=== PATIENT | male | born 1950 | race Caucasian/White ===

== ENCOUNTER 2019-06-24 07:16 | Day surgery (SDC) | payer MEDICARE ==
[~2019-06-24] VITALS: Ht 167.7 cm; Wt 67.7 kg
[~2019-06-24 07:16] MED LIST: AMOX500C2 PO; CLAR-19 PO; CLAR250T3 PO; INSU100C3 SQ; INSU100V SQ; INSU100V16 SQ; INSU100V5 SQ; LISI-552 PO; LISI10TA2 PO; OMEP10SU2 PO; OMEP20CA13 PO; ONDA4TAB11 SL; ONDA8TAB9 PO
[2019-06-24] MEDS ORDERED: LACTATED RINGERS 1,000 ML IV STA (07:25)
[2019-06-24] MEDS ORDERED: HURRICAINE EXT TUBE (BENZOCAINE) XX PRN (07:30)
[2019-06-24 07:46] VITALS: BP 156/56
[2019-06-24] MEDS ORDERED: LACTATED RINGERS 1,000 ML IV ONE (07:50)
[2019-06-24] MEDS ORDERED: NF-MINO10T PO (07:55)
[2019-06-24] MEDS ORDERED: CHOL20002 PO (08:02)
[2019-06-24] MEDS ORDERED: TAMS0.4C98 PO (08:02)
[2019-06-24] MEDS ORDERED: AMLO10TA7 PO (08:02)
[2019-06-24] MEDS ORDERED: FERR-84 PO (08:02)
[2019-06-24] MEDS ORDERED: FAMO20TA5 PO (08:02)
[2019-06-24] MEDS ORDERED: CLOP75TA28 PO (08:02)
[2019-06-24] MEDS ORDERED: FINA5TAB6 PO (08:02)
[2019-06-24] MEDS ORDERED: SERT25TA5 PO (08:02)
[2019-06-24] MEDS ORDERED: METO-352 PO (08:02)
[2019-06-24] MEDS ORDERED: ATOR80TA76 PO (08:02)
[2019-06-24] MEDS ORDERED: CLON0.1T PO (08:02)
[2019-06-24] MEDS ORDERED: PROPOFOL INJECTION 50 ML IV ONE (08:11)
[2019-06-24] MEDS ORDERED: MIDAZOLAM 2 MG/2 ML (VERSED) VIAL ONE (08:11)
--- NOTE | 2019-06-24 08:29 | Progress Note-Pre Operative ---
Pre-Operative Progress Note H&P Reviewed The H&P was reviewed, patient examined and no changes noted. Time Seen by Provider: 08:23 Date H&P Reviewed: Jun 24, 2019 Time H&P Reviewed: 08:24 Pre-Operative Diagnosis: N/V, Screening colonoscopy BK ALMONTE DO Jun 24, 2019 08:29
[2019-06-24] MEDS ORDERED: HURRICAINE EXT TUBE (BENZOCAINE) ONE (08:35)
[2019-06-24 09:15] VITALS: BP 101/49
[2019-06-24 09:19] VITALS: BP 105/47
[2019-06-24 09:20] VITALS: BP 105/51
--- NOTE | 2019-06-24 09:59 | Progress Note-Post Operative ---
Post-Operative Progess Note Surgeon (s)/Inspector Missile (s) Surgeon BK ALMONTE DO Inspector Missile: JASON Ferguson Pre-Operative Diagnosis N/V, Screening colonoscopy Post-Operative Diagnosis Gastritis, Hiatal Hernia Esophagitis, ??Gastroparesis Colon polyp Diverticula Internal hemorrhoids Poor prep Procedure & Operative Findings Date of Procedure 06/24/19 Procedure Performed/Findings EGD with bx Colon with snare Anesthesia Type IV sedation by CONSUMER LENDER Estimated Blood Loss Estimated blood loss (mL): scant Specimens/Packing Specimens Removed antral bx body of stomach bx GE jxn bx Transverse colon polyp BK ALMONTE DO Jun 24, 2019 09:59
[2019-06-24 10:00] VITALS: BP 158/67
--- NOTE | 2019-06-24 10:01 | Endoscopy Discharge Instruct ---
Endo Procedure/Findings Findings 1.: Hiatal Hernia, Gastritis 2.: Polyp 3.: Diverticulosis 4.: Internal Hemorrhoids Discharge Instructions - Activity: You might feel a little sleepy until tomorrow. This is due to the medicine you received to relax you. Until tomorrow, you should: NOT drive a car, operate machinery or power tools. NOT drink any alcoholic beverages. NOT make any important decisions or sign importortant papers. Do not return to work until tomorrow, unless otherwise instructed. Resume previous activities tomorrow. Diet: Start by taking liquids. If you tolerate liquids, advance to solid food. make an appointment for one week 1.: Colonoscopy in 1 year, EGD in 1 year Notify Physician - If you experience excessive bleeding, unusual abdominal pain, fever, or chest pain, contact your doctor immediately. BK ALMONTE DO Jun 24, 2019 10:01
[2019-06-24 10:15] VITALS: BP 158/67
--- NOTE | 2019-06-24 10:36 | Anesthesia-General Post-Op ---
MAC Patient Condition Mental Status/LOC: Same as Preop Cardiovascular: Satisfactory Nausea/Vomiting: Absent Respiratory: Satisfactory Pain: Controlled Complications: Absent Post Op Complications Complications None Follow Up Care/Instructions Patient Instructions None needed. Anesthesiology Discharge Order Discharge Order Patient is doing well, no complaints, stable vital signs, no apparent adverse anesthesia problems. TARA BAILEY DO Jun 24, 2019 10:36
--- NOTE | 2019-06-25 01:59 | OPERATIVE REPORT ---
DATE OF SERVICE: PREOPERATIVE DIAGNOSES: 1. Gastritis. 2. Screening colonoscopy. POSTOPERATIVE DIAGNOSES: 1. Gastritis. 2. Hiatal hernia. 3. Esophagitis. 4. Transverse colon polyp. 5. Diverticula. 6. Internal hemorrhoids. 7. Poor prep. 8. Possible gastroparesis. PROCEDURES: 1. EGD with biopsy. 2. Colonoscopy with snare polypectomy. SURGEON: Hermelindo Cruz DO. CLOCKMAKER APPRENTICE: Jayde De Paz MS3. SPECIMEN: Biopsy from the antrum, body of stomach and GE junction as well as a polyp from the transverse colon. BLOOD LOSS: Scant. FLUIDS: Per anesthesia. POSTOPERATIVE CONDITION: Stable. INDICATION FOR PROCEDURE: The patient is a 68-year-old male who has some chronic gastritis and needed a workup. He also has not ever had a colonoscopy, needed one for screening. FINDINGS: The patient had a lot of retained liquid in the stomach and some vegetable matter may be due to gastroparesis. He also had some gastritis in the colon, saw a polyp in the transverse colon and removed this. He also had a lot of retained fecal material. He also had some internal hemorrhoids and some diverticula. Pictures of all these were taken. He will need a repeat colonoscopy in one year because of the poor prep. PROCEDURE NOTE: After informed consent was obtained, the patient was brought to the endoscopy suite and placed in bed in the left lateral decubitus position. He was administered IV sedation by the [employer] MAKE UP HELPER who monitored his vitals the entire time, heart rate, blood pressure and pulse ox and the scope was inserted down the mouth through the esophagus into the stomach. Upon entering the stomach, noted a lot of liquid and vegetable matter, took a picture of this may be due to some gastroparesis from his renal disease and diabetes. Pushed in towards the antrum and then into the duodenum. Duodenum looked fine, took a picture of this. Pulled the scope back, he had some mild gastritis, elected to do a biopsy of the antrum and then did a biopsy of the body of stomach. When I retroflexed the scope, saw a small hiatal hernia, took a picture of this and then pulled the scope into the GE junction again could see small hiatal hernia, did a biopsy of the GE junction, suctioned the air out of the stomach and then pulled the scope up the esophagus and out the mouth. Switched camera, switched gloves, went down below, started the colonoscopy. Pushed the scope in and on the way in, noted a lot of diverticula. Pictures were taken. He also had a lot of retained liquid and vegetable matter fecal material. As well as pushing towards the cecum saw a mass in the transverse colon, did a snare polypectomy of this, suctioned it up and sent to pathology. Then able to get all the way to the cecum about 150 cm in, took a picture of appendiceal orifice, noted the ileocecal valve and then slowly withdrew the scope insufflating to look circumferentially at the hughes, looking the cecum, up the ascending colon to the hepatic flexure, then down the transverse colon, the splenic flexure, into the descending colon down into the sigmoid and finally into the rectum, retroflexed the rectal vault, saw some minimal internal hemorrhoids, took a picture of this and then removed the scope. The patient tolerated the procedure, recovered in endoscopy suite. Job ID: [id number] DocumentID: [id number] Dictated Date: 06/24/2019 15:33:41 Rail Specialist Date: 06/25/2019 01:58:55 Dictated By: HERMELINDO CRUZ DO
== END 2019-06-24 10:15 | disposition home or self-care (01) ==
LOC: ENDO 07:16
PROVIDERS: ATTEND Surgery
DX: Z12.11 Encounter for screening for malignant neoplasm of colon (principal); D12.3 Benign neoplasm of transverse colon; K29.50 Unspecified chronic gastritis without bleeding; K44.9 Diaphragmatic hernia without obstruction or gangrene; K57.30 Diverticulosis of large intestine without perforation or abscess without bleeding; K21.0 Gastro-esophageal reflux disease with esophagitis; K64.8 Other hemorrhoids; E11.9 Type 2 diabetes mellitus without complications; I10 Essential (primary) hypertension; Z79.02 Long term (current) use of antithrombotics/antiplatelets; Z79.899 Other long term (current) drug therapy; Z86.73 Personal history of transient ischemic attack (TIA), and cerebral infarction without residual deficits; Z80.3 Family history of malignant neoplasm of breast; Z87.891 Personal history of nicotine dependence
CPT/HCPCS: 82962

== ENCOUNTER 2020-12-24 05:34 | Outpatient (CLI) | payer MEDICARE ==
[~2020-12-24] VITALS: Ht 167.6 cm; Wt 75.8 kg
[~2020-12-24 05:34] MED LIST changes: +AMLO-251 PO; +ATOR80TA76 PO; +CHOL20002 PO; -CLAR-19 PO; +CLAR-31 PO; +CLN.1T PO; +CLOP75TA28 PO; +FAMO20TA5 PO; +FERR-84 PO; +FINA5TAB6 PO; -LISI-552 PO; -LISI10TA2 PO; +LISI10TA25 PO; +LISI20TA26 PO; +METO-352 PO; +NF-MINO10T PO; -OMEP20CA13 PO; +OMEP20CA18 PO; +SERT-412 PO; +TMSL.4C PO
== END 2020-12-28 12:25 | disposition home or self-care (01) ==
LOC: PREOP 05:34
PROVIDERS: ATTEND Surgery
DX: Z01.818 Encounter for other preprocedural examination (principal)

== ENCOUNTER 2020-12-31 06:56 | Day surgery (SDC) | payer MEDICARE ==
[~2020-12-31] VITALS: Ht 167.6 cm; Wt 75.8 kg
[2020-12-31] MEDS ORDERED: LACTATED RINGERS 1,000 ML IV STA (07:04)
[2020-12-31] MEDS ORDERED: proPOfol 200 MG/20 ML (DIPRIVAN) VIAL IV ONE (07:19)
[2020-12-31] MEDS ORDERED: NS IV 500 ML 500 ML ONE (07:28)
[2020-12-31] MEDS ORDERED: INSU100I21 SQ (07:32)
[2020-12-31] MEDS ORDERED: MINO2.5T PO (07:32)
[2020-12-31] MEDS ORDERED: INSU100I14 SQ (07:32)
[2020-12-31 07:35] VITALS: BP 204/88
[2020-12-31] MEDS ORDERED: NS IV 500 ML 500 ML IV ONE (07:45)
--- NOTE | 2020-12-31 08:19 | Progress Note-Pre Operative ---
Pre-Operative Progress Note H&P Reviewed The H&P was reviewed, patient examined and no changes noted. Time Seen by Provider: 08:17 Date H&P Reviewed: Dec 31, 2020 Time H&P Reviewed: 08:17 Pre-Operative Diagnosis: Hx of colon polyps BK ALMONTE DO Dec 31, 2020 08:19
[2020-12-31 08:40] VITALS: BP 93/44
--- NOTE | 2020-12-31 08:42 | Progress Note-Post Operative ---
Post-Operative Progess Note Surgeon (s)/Ent Physician (s) Surgeon BK ALMONTE DO Ent Physician: none Pre-Operative Diagnosis Hx of colon polyps Post-Operative Diagnosis Polyps diverticula int hemorrhoids Procedure & Operative Findings Date of Procedure 12/31/20 Procedure Performed/Findings Colon with snare Anesthesia Type IV sedation by Anesthesia Estimated Blood Loss Estimated blood loss (mL): scant Specimens/Packing Specimens Removed transverse colon polyp sigmoid polyp BK ALMONTE DO Dec 31, 2020 08:42
--- NOTE | 2020-12-31 08:43 | Endoscopy Discharge Instruct ---
Endo Procedure/Findings Findings 1.: Polyp 2.: Diverticulosis 3.: Internal Hemorrhoids Discharge Instructions - Activity: You might feel a little sleepy until tomorrow. This is due to the medicine you received to relax you. Until tomorrow, you should: NOT drive a car, operate machinery or power tools. NOT drink any alcoholic beverages. NOT make any important decisions or sign importortant papers. Do not return to work until tomorrow, unless otherwise instructed. Resume previous activities tomorrow. Diet: Start by taking liquids. If you tolerate liquids, advance to solid food. 1.: Colonscopy in 5 years Notify Physician - If you experience excessive bleeding, unusual abdominal pain, fever, or chest pain, contact your doctor immediately. BK ALMONTE DO Dec 31, 2020 08:43
[2020-12-31 08:45] VITALS: BP 110/49
[2020-12-31 08:50] VITALS: BP 136/62
[2020-12-31 08:55] VITALS: BP 136/62
[2020-12-31 09:17] VITALS: BP 142/68
--- NOTE | 2020-12-31 10:17 | Anesthesia-General Post-Op ---
MAC Patient Condition Mental Status/LOC: Same as Preop Cardiovascular: Satisfactory Nausea/Vomiting: Absent Respiratory: Satisfactory Pain: Controlled Complications: Absent Post Op Complications Complications None Follow Up Care/Instructions Patient Instructions None needed. Anesthesiology Discharge Order Discharge Order Patient was seen this morning after the procedure and he was doing well, no complaints, stable vital signs, no apparent adverse anesthesia problems. TARA BAILEY DO Dec 31, 2020 10:17
--- NOTE | 2020-12-31 14:35 | OPERATIVE REPORT ---
DATE OF SERVICE: 12/31/2020 PREOPERATIVE DIAGNOSES: History of colon polyps, poor prep. POSTOPERATIVE DIAGNOSES: Colon polyps, diverticula, internal hemorrhoids. PROCEDURE: Colonoscopy with snare polypectomy. SURGEON: Hermelindo Cruz DO HOME MORTGAGE DISCLOSURE ACT SPECIALIST: None. ANESTHESIA: IV sedation by anesthesiologist. SPECIMEN: Transverse colon polyp and sigmoid colon polyp. BLOOD LOSS: Scant. FLUIDS: Per anesthesia. POSTOPERATIVE CONDITION: Stable. INDICATION FOR PROCEDURE: The patient is a 70-year-old male who had a previous colonoscopy that showed polyps and a very poor prep, unsure we missed any large polyps, needed to do a repeat colonoscopy. FINDINGS: The patient had small polyps, one in the transverse colon, one in the sigmoid colon. He had a lot of diverticula in the left side of the colon and he had some internal hemorrhoids. PROCEDURE NOTE: After informed consent was obtained, the patient was brought to the endoscopy suite, placed in bed in left lateral decubitus position. He was administered IV sedation by the anesthesiologist who then monitored his vitals the entire time, heart rate, blood pressure and pulse ox and the scope was inserted, pushed in, on the way in, noted a lot of diverticula in the descending and sigmoid colon. Large diverticula, took a picture of this, pushed in and then a transverse colon, saw small polyp, did a snare polypectomy, continued into the cecum, took a picture of appendiceal orifice, noted the ileocecal valve, then slowly withdrew the scope insufflating to look circumferential hughes looking at the cecum up the ascending colon to the hepatic flexure, then down the transverse colon, splenic flexure, into the descending colon down the sigmoid. In the sigmoid, saw another polyp, did a snare polypectomy and then continued down into the rectum and then on the way out, took a picture of the internal hemorrhoids. Scope removed. The patient tolerated the procedure, recovered in endoscopy suite. Job ID: [id number] DocumentID: [id number] Dictated Date: 12/31/2020 08:46:02 Quality Improvement Specialist Date: 12/31/2020 14:35:03 Dictated By: HERMELINDO CRUZ DO
== END 2020-12-31 09:19 | disposition home or self-care (01) ==
LOC: ENDO 06:56
PROVIDERS: ATTEND Surgery
DX: Z12.11 Encounter for screening for malignant neoplasm of colon (principal); D12.3 Benign neoplasm of transverse colon; K63.5 Polyp of colon; K57.30 Diverticulosis of large intestine without perforation or abscess without bleeding; K64.8 Other hemorrhoids; I10 Essential (primary) hypertension; J45.909 Unspecified asthma, uncomplicated; E78.5 Hyperlipidemia, unspecified; Z79.4 Long term (current) use of insulin; Z86.010 Personal history of colon polyps; E11.40 Type 2 diabetes mellitus with diabetic neuropathy, unspecified; Z79.02 Long term (current) use of antithrombotics/antiplatelets; Z79.899 Other long term (current) drug therapy; Z83.3 Family history of diabetes mellitus; Z80.3 Family history of malignant neoplasm of breast
CPT/HCPCS: 82962; 88305